=== PATIENT | male | born 1970 | race Caucasian/White ===

== ENCOUNTER → 2017-04-06 | Day surgery (SDC) | payer OTHER ==
[~2017-04-06] VITALS: Ht 177.8 cm; Wt 107.0 kg
[~2017-04-06] MED LIST: ALBU6.7H INH; Ketamine 10 mg/mL 20 mL Inj ONE; Lactated Ringer's 1,000 ML IV ONE; Lactated Ringer's 1,000 ML IV SCH; MELA1TAB25 SL; METH20TA PO; MetoCLOpramide 5 mg/mL 2 mL Inj IVPUSH PRN; OMEP20TA86 PO; Ondansetron 2 mg/mL 2 mL Inj IVPUSH PRN; PRAZ5CAP3 PO; Propofol 10,000 mCg/mL 20 mL Inj ONE; fentaNYL-PF 50 mCg/mL 2 mL Inj ONE
--- NOTE | 2017-04-06 07:38 | PCM.HPANE ---
Patient Data Surgeon Admitting Provider: Attending Provider:Mushtaq Grant MD Primary Care Physician:Yun Other Provider:Jane Anderson Anesthesia Reason for Visit Altered Bowel Habits Ht/WT & BMI Body Mass Index Allergies Coded Allergies: ibuprofen (Verified Allergy, Severe, ANAPHYLAXIS, 04/06/17) Past Anesthesia History Anesthesia History: Denies:: Abnormal Airway, Difficult Intubation Diabetes History Hx Diabetes?: No MRSA MRSA: No Medications Hypertension Medication: No Home Meds Incl Beta Maria M: No Reported Medications Melatonin 1 Mg Tab.subl1 Mg SL HS 04/06/17 Methylphenidate (Ritalin)20 Mg Ganwna93 Mg PO DAILY Ref 0 04/04/17 Albuterol Sulfate (Proventil HFA Inhaler)6.7 Gm Hfa.aer.ad2 Puff INH Q4 PRN For Shortness of Breath #1 INHALER Ref 0 04/04/17 Prazosin 5 Mg Capsule5 Mg PO HS 04/04/17 Omeprazole 20 Mg Tablet.dr20 Mg PO DAILY 04/04/17 History History of ENT Problems?: No HEENT History: Denies:: Abnormal Airway Cataracts Difficult Intubation Dysphagia Glaucoma Hearing Problem Sinus Problem TMJ Denture Type: None Teeth Condition: Within Normal Limits Hx of Heart Problems?: No Cardiovascular History: Denies:: AICD Abdominal Aortic Aneurism Atrial Fibrillation Cardiac Surgery Chest Pain Congestive Heart Failure Coronary Artery Disease Edema Heart Murmur Hypertension Irregular Heartbeat Pacemaker Peripheral Vascular Rheumatic Fever Thrombophlebitis Valvular Heart Disease Hx of Respiratory Problem?: No Respiratory History: Denies:: Asthma COPD Chest Surgery Cough Dyspnea Emphysema Hemoptysis Oxygen Administration Pneumonia Pulmonary Embolism Tuberculosis Use of C-PAP Machine Use of Inhalers / NEBS Hx Neurologic Problems?: No Neurological History: Denies:: Alzheimer's Disease CVA Dementia Dizziness Headaches Multiple Sclerosis Parkinson's Disease Peripheral Neuropathy Seizures TIA Hx of GI Problems?: Yes (change in bowel habits) Hx of Problems?: No HX of Peritoneal Dialysis: No Male Hx: Denies:: Prostate Problems Scrotal Mass Testicular Surgery Skin History: Denies:: History Skin Disorders? Pressure Ulcers Hx Musculoskeletal Problems?: No Hx of Psycho/Social Problems?: No Hx Surgeries?: No Hx Any Other Health Problems?: No Hx Diabetes: No Stop/Bang Treated for Sleep Apnea?: No Do You Have a CPAP Machine?: No Risk Assessment Category Category 1A: Patient has history of documented sleep apnea, and HAS NOT received any narcotic, sedative or anesthesia administration during this stay. Category 1B: Patient has history of documented sleep apnea, and HAS received any narcotic , sedative or anesthesia administration during this stay Category 2: Patient has SUSPECTED Obstructive Sleep Apnea, and HAS received any narcotic , sedative or anesthesia administration during this stay. Category 3: Patient has SUSPECTED Obstructive Sleep Apnea and HAS NOT received narcotic, sedative or anesthesia administration during this stay. Category 4: Outpatient in Procedural Areas with known sleep apnea or who screen positive for High Risk via the STOP/BANG questionnaire. Exam Exam General Appearance: Alert, Oriented X3, Cooperative, No Acute Distress HEENT/AIRWAY: MP 2 Lungs: Clear to Auscultation, Normal Air Movement Heart: Exam Unremarkable, Regular Rate/Rhythm, No Murmurs/Rubs/Gallops Plan Impression Patient chart reviewed, patient interviewed and anesthestic plan with risks, benefits, and alternatives discussed, and informed consent obtained. ASA Physical Status: ASA2 Mod Systemic Disease Anesthetic Plan: MAC Bene/Risks/Altern/Consents: Yes HP Complete Prior to Induction: Yes Tesfaye Mendoza MD Apr 06, 2017 07:38
[2017-04-06 09:04] VITALS: BP 136/89; PULSE 65; RESP 16; O2SAT 97
--- NOTE | 2017-04-06 10:11 | PCM.ENDCOL ---
Colonoscopy Date of Service: Apr 06, 2017 Physician Mushtaq Grant MD Pre Procedure Diagnosis: Altered bowel habits Post Procedure Dx & Findings: Polyp hemorrhoids Procedure Colonoscopy PROCEDURE IN DETAIL: Sedation by anesthesiology Prep adequate Withdrawal time 18 minutes After unremarkable rectal examination the Olympus video colonoscope was inserted patient's anal canal and was advanced to cecum. Landmarks were identified including the ileocecal valve and appendiceal orifice. Scope was withdrawn systematically. Visualized colonic mucosa showed healthy shiny mucosa with normal healthy-appearing vasculature. In the ascending colon, there was a 1 cm lipoma. Positive pillow sign. Biopsy obtained. In the descending colon, there are 2 polyps. One was about 1 mm. This was removed completely using cold forceps. The other one was about 2 mm and this was removed completely using cold snare. However the polyp that is 2 mm was lost during retrieval process. In the rectum retroflexion was done which showed hemorrhoids. Anal canal was inspected carefully on the way out and hemorrhoids noted. Impression Polyp 2 status post complete removal Lipoma Hemorrhoids Recommendation Repeat colonoscopy in 5 years Presedation Assessment Risks and Benefits Informed consent was obtained from the patient after all risks and benefits including but not limited to drug reaction, infection, pain, bleeding, perforation, as well as alternatives were discussed. Patient monitoring Continuous pulse oximetry, cardiac monitoring, blood pressure monitoring, IV access, and oxygen at 2L per nasal cannula. Complications There were no periprocedural complications identified. Post Procedure Plan Post Procedure Recommendations 1. Restrict activities today. 2. Resume normal activities in the morning. 3. Resume medications. 4. Patient informed of normal post procedure side effects as bloating, drowsiness, blood streaking in the stool. 5. average risk CRCS. If colon polyps come back as: -Hyperplastic- can repeat colonoscopy in 10 years -Tubular adenoma- repeat colonoscopy in 5 years -Tubulovillous/villous adenoma- repeat colonoscopy in 3 years -If any dysplasia- return to clinic as soon as possible 6. Please don't hesitate to call me with any questions. Mushtaq Grant MD Apr 06, 2017 10:11
[2017-04-06 10:12] VITALS: BP 128/68; PULSE 67; RESP 16; O2SAT 97
[2017-04-06 10:20] VITALS: BP 130/83; PULSE 70; RESP 16; O2SAT 97
[2017-04-06 10:30] VITALS: BP 127/86; PULSE 62; RESP 14; O2SAT 98
--- NOTE | 2017-04-07 09:14 | PCM.ANEP1 ---
Post Anesthesia PACU Phase 1 Assessment Anesthetic Administered: MAC Level of Alertness: Awake, talking Pain: No Nausea or Vomiting: No CV Function & Hydration Stable: Yes Airway Device: none Lungs: Clear to Auscultation, Normal Air Movement Dermatome Level: Full Sensation PACU Phase 2 Assessment Complications: No Follow up Care: No Patient Instructions Provided: N/A Tesfaye Mendoza MD Apr 07, 2017 09:14
--- NOTE | 2017-04-10 16:49 | PATH ---
SURGICAL PATHOLOGY Attending Physician:Mushtaq Grant M.D. CASE STATUS: Signed Out PATIENT NAME: ROBEL ARTHUR PID: [id number] : 1970 DATE COLLECTED:04/06/2017 21:33 SPECIMEN: 1: Colon, Biopsy 2: Colon, Polyp CLINICAL HISTORY: 1). ASCENDING COLON LIPOMA BIOPSY 2). DESCENDING COLON POLYPS FINAL DIAGNOSIS: 1. Ascending Colon, Biopsy: Colonic mucosa with no diagnostic abnormality, see comment. 2. Designated "Descending Colon Polyps", Biopsy: Tubular adenoma; see comment. ICD10: D12.4 NOTE: Part 1: We note the endoscopic impression of a submucosal lipoma; however, no submucosal tissue is present for evaluation. Part 2: Only one polyp was submitted for histologic evaluation. GROSS DESCRIPTION: Received two formalin-filled containers, each labeled with the patient' s name. 1. Received in formalin, labeled with the patient' s name and "ascending colon lipoma biopsy", is one fragment of benz, soft tissue measuring 0.2 x 0.1 x 0.1 cm. The fragment is totally submitted in cassette 1A. 2. Received in formalin, labeled with the patient' s name and "descending colon polyps", is one fragment of benz, soft tissue measuring 0.2 x 0.1 x 0.1 cm. The fragment is totally submitted in cassette 2A. ([id number]) ICD-9 CODES: CPT CODES: 1: 99025 2: 19602 Electronically Signed Out Robert Alvares MD, Ph.D. [facility] Pathology [facility] [address] [place] [address], [place] [address] Technical component performed at [facility], [facility] [address], [place], [address]
== END | disposition home or self-care (01) ==
LOC: END 01:23
PROVIDERS: ATTEND Internal Medicine
DX: R19.4 Change in bowel habit (principal); D12.4 Benign neoplasm of descending colon; D17.79 Benign lipomatous neoplasm of other sites; K64.8 Other hemorrhoids; F41.9 Anxiety disorder, unspecified; F43.10 Post-traumatic stress disorder, unspecified
CPT/HCPCS: 45380; 45385; J2250; J2704; J3010